=== PATIENT | male | born 2000 | race Hispanic/Latino ===

== ENCOUNTER 2024-09-03 19:48 | Emergency (ER) | payer SELFPAY | END 2024-09-03 21:07 | disposition home or self-care (01) | LOC: MADERS 19:48 | DX: F07.81 Postconcussional syndrome (principal); G44.309 Post-traumatic headache, unspecified, not intractable | CPT/HCPCS: 70450 ==

== ENCOUNTER 2025-08-26 18:36 | Emergency (ER) | payer SELFPAY ==
[2025-08-26] MEDS ORDERED: Bacitracin 1 PK ONE (18:56)
[2025-08-26] MEDS ORDERED: Lidocaine 1% PF 5 ML VIAL ONE (18:56)
== END 2025-08-26 19:30 | disposition home or self-care (01) ==
LOC: MADERS 18:36
DX: S61.012A Laceration without foreign body of left thumb without damage to nail, initial encounter (principal); W26.0XXA Contact with knife, initial encounter
CPT/HCPCS: 12001; 99282